=== PATIENT | male | born 1970 | race African-American/Black ===

== ENCOUNTER 2024-08-31 14:49 | Inpatient (IN) | payer OTHER ==
[2024-08-31 15:32] VITALS: BMI 25.9
[2024-08-31] MEDS ORDERED: MAGNESIUM HYDROX 2400MG/30ML ORAL SUSPENSION 30 ML CUP PO PRN (20:01)
[2024-08-31] MEDS ORDERED: NICOTINE POLACRILEX 2 MG GUM BUC PRN (20:01)
[2024-08-31] MEDS ORDERED: NALOXONE (NARCAN) HCL 4 MG/0.1 ML SPRAY NS PRN (20:01)
[2024-08-31] MEDS ORDERED: BENZONATATE 200 MG CAPSULE PO PRN (20:01)
[2024-08-31] MEDS ORDERED: ONDANSETRON *ODT* 4 MG TABLET SL PRN (20:01)
[2024-08-31] MEDS ORDERED: DICYCLOMINE HCL 10 MG CAPSULE PO PRN (20:01)
[2024-08-31] MEDS ORDERED: POLYETHYLENE GLYCOL (HEALTHYLAX) 3350 17 GM PACKET PO PRN (20:01)
[2024-08-31] MEDS ORDERED: ACETAMINOPHEN 325 MG TABLET (FP) PO PRN (20:01)
[2024-08-31] MEDS ORDERED: NICOTINE POLACRILEX 2 MG LOZENGE BC PRN (20:01)
[2024-08-31] MEDS ORDERED: BENZOCAINE/MENTHOL (CHLORASEPTIC ) LOZENGE MM PRN (20:01)
[2024-08-31] MEDS ORDERED: MAG HYDROX/AL HYDROX/SIMETH 30 ML UNIT-DOSE CUP PO PRN (20:01)
[2024-08-31] MEDS ORDERED: IBUPROFEN 400 MG TABLET (FP) PO PRN (20:01)
[2024-08-31] MEDS ORDERED: guaiFENesin 600 MG TABLET.ER (FP) PO PRN (20:01)
[2024-08-31] MEDS ORDERED: P-EPHED 60MG/TRIPROLIDI 2.5MG TABLET PO PRN (20:01)
[2024-08-31] MEDS ORDERED: LOPERAMIDE HCL 2 MG CAPSULE PO PRN (20:01)
[2024-08-31] MEDS ORDERED: BISMUTH SUBSALICYLATE 524 MG/30 ML PO PRN (20:01)
[2024-08-31] MEDS: THIAMINE 100 MG TABLET PO SCH (21:36)
[2024-08-31] MEDS: METHOCARBAMOL 500 MG TABLET PO PRN (21:36)
[2024-08-31] MEDS: MELATONIN 5 MG TABLETS PO SCH (21:36)
[2024-08-31] MEDS: IBUPROFEN 600 MG TABLET (FP) PO PRN (21:38)
[2024-09-01] MEDS ORDERED: diazePAM 5 MG TABLET PO PRN (09:09)
[2024-09-01] MEDS: methaDONE HCL 40 MG DISPERSABLE TABLET PO ONE (09:23)
[2024-09-01] MEDS: PRENATAL VITAMINS W/ FOLIC ACID TABLET (FP) PO SCH (09:27)
[2024-09-01] MEDS: diazePAM 5 MG TABLET PO SCH (10:31)
[2024-09-01 12:34] LABS: HEMATOCRIT 42.5 % (35.4-49); HEMOGLOBIN 14.1 GM/dL (11.7-16.9); MCH 29.9 pg (25.7-33.7); MCHC 33.3 g/dl (32.0-35.9); MEAN CELL VOLUME 89.8 fl (80-96); MEAN PLT VOLUME 8.7 fl (7.5-11.1); PLATELET COUNT 216 10^3/uL (134-434); RBC 4.73 M/mm3 (4.00-5.60); RDW 14.2 % (11.9-15.9); WHITE BLOOD COUNT 7.9 K/mm3 (4.0-10.0)
[2024-09-01 13:24] LABS: CHLORIDE 105 mmol/L (98-107); POTASSIUM 4.3 mmol/L (3.5-5.1); SODIUM 138 mmol/L (136-145)
[2024-09-01 13:34] LABS: ALBUMIN 3.5 g/dl (3.4-5.0); BLOOD UREA NITROGEN 12.1 mg/dL (7-18); CALCIUM 9.5 mg/dL (8.5-10.1); GLUCOSE,RANDOM 109 mg/dL (74-106); SGPT/ALT 22 U/L (13-61)
[2024-09-01 13:35] LABS: ANION GAP 3 mmol/L (4-13); CO2 29 mmol/L (21-32)
[2024-09-01 13:36] LABS: BILIRUBIN,TOTAL 0.3 mg/dL (0.2-1); TOT PROT 7.8 g/dl (6.4-8.2)
[2024-09-01 13:37] LABS: ALK PHOS 129 U/L (45-117); SGOT/AST 18 U/L (15-37)
[2024-09-01] MEDS: cloNIDine HCL 0.1 MG TABLET PO ONE (14:43)
[2024-09-01] MEDS: OLANZapine 10 MG TABLET PO SCH (22:25)
[2024-09-02] MEDS: methaDONE HCL 40 MG DISPERSABLE TABLET PO SCH (06:15)
[2024-09-02] MEDS: DIVALPROEX SODIUM 125 MG TABLET E.C. PO SCH (10:41)
[2024-09-02] MEDS: FLUoxetine HCL 20 MG CAPSULE PO SCH (10:41)
[2024-09-02] MEDS: NICOTINE 14 MG/24 HOURS TOPICAL PATCH TD SCH (18:26)
[2024-09-02 21:25] VITALS: RESP 17
[2024-09-03] MEDS: diazePAM 5 MG TABLET PO SCH (05:23)
[2024-09-03 09:10] VITALS: BP 141/83; PULSE 62; TEMP 98.2
[2024-09-03] MEDS: NALOXONE (NYS OPIOID OVERDOSE PROGRAM) 4 MG/0.1 ML SPRAY NS PRN (11:18)
[2024-09-04] MEDS ORDERED: diazePAM 5 MG TABLET PO SCH (06:00)
[2024-09-05] MEDS ORDERED: diazePAM 5 MG TABLET PO ONE (06:00)
== END 2024-09-03 11:15 | disposition left against medical advice (07) | DRG 770 ==
LOC: YASAS 14:49 → Y6N 20:24
PROVIDERS: ADMIT Allergy & Immunology; ATTEND Surgery
PROC: HZ2ZZZZ Detoxification Services for Substance Abuse Treatment (ICD-10-PCS; principal; 2024-08-31)
DX: F10.230 Alcohol dependence with withdrawal, uncomplicated (principal); F11.20 Opioid dependence, uncomplicated; F14.20 Cocaine dependence, uncomplicated; F17.210 Nicotine dependence, cigarettes, uncomplicated
CPT/HCPCS: 36415; 80053; 80164; 80305; 80307; 85027; 86780; 93005; 93010